=== PATIENT | male | born 1960 | race Caucasian/White ===

== ENCOUNTER 2019-04-24 12:25 | Outpatient (CLI) | payer OTHER ==
[2019-04-24 13:27] LABS: CHOLESTEROL 139 mg/dL (<200); HDL CHOLESTEROL 38 mg/dL (>45); LDL CHOLESTEROL 82 mg/dL (<100); TRIGLYCERIDES 177 mg/dL (30-150)
== END 2019-04-24 18:46 | disposition home or self-care (01) ==
LOC: SLB 12:25
PROVIDERS: ATTEND Psychiatry & Neurology Psychiatry
DX: Z00.00 Encounter for general adult medical examination without abnormal findings (principal)
CPT/HCPCS: 36415; 80061; 83036

== ENCOUNTER 2019-04-25 15:59 | Outpatient (CLI) | payer OTHER | END 2019-04-25 20:44 | disposition home or self-care (01) | LOC: SLB 15:59 | PROVIDERS: ATTEND Psychiatry & Neurology Psychiatry | DX: Z00.00 Encounter for general adult medical examination without abnormal findings (principal) | CPT/HCPCS: 87081 ==

== ENCOUNTER 2019-04-28 08:22 | Outpatient (CLI) | payer OTHER ==
[2019-04-28 09:19] LABS: CHOLESTEROL 215 mg/dL (<200); HDL CHOLESTEROL 45 mg/dL (>45); LDL CHOLESTEROL 141 mg/dL (<100); TRIGLYCERIDES 184 mg/dL (30-150)
== END 2019-04-28 19:08 | disposition home or self-care (01) ==
LOC: SLB 08:22
PROVIDERS: ATTEND Psychiatry & Neurology Psychiatry
DX: Z00.00 Encounter for general adult medical examination without abnormal findings (principal)
CPT/HCPCS: 36415; 80061; 83036

== ENCOUNTER 2019-04-29 10:30 | Outpatient (CLI) | payer OTHER ==
[2019-04-29 11:40] LABS: BILIRUBIN,URINE NEGATIVE (NEGATIVE); BLOOD, URINE NEGATIVE (NEGATIVE); CLARITY/URINE CLEAR (CLEAR); COLOR,URINE YELLOW (YELLOW); GLUCOSE,URINE NEGATIVE (NEGATIVE); KETONES,URINE NEGATIVE (NEGATIVE); LEUKOCYTE ESTERASE ,URINE NEGATIVE (NEGATIVE); NITRITE, URINE NEGATIVE (NEGATIVE); PROTEIN URINE NEGATIVE (NEGATIVE); UROBILINOGEN,URINE 0.2 (0.2-1.0)
== END 2019-04-29 20:26 | disposition home or self-care (01) ==
LOC: SLB 10:30
PROVIDERS: ATTEND Psychiatry & Neurology Psychiatry
DX: Z00.00 Encounter for general adult medical examination without abnormal findings (principal)
CPT/HCPCS: 81003; 87086